=== PATIENT | female | born 1955 | race Caucasian/White ===

== ENCOUNTER 2020-07-31 14:05 | Emergency (ER) | payer OTHER, SELFPAY ==
--- NOTE | ~2020-07-31 | XR_ITS ---
EXAMINATION: XR chest 2V DATE: 07/31/2020 15:21 INDICATION: Confusion and memory loss TECHNIQUE: Frontal and lateral views of the chest are obtained COMPARISON: 08/07/2007 FINDINGS: The lungs are free of acute opacities. There is no pleural effusion or pneumothorax. The ca rdiomediastinal silhouette is normal. There is mild thoracic spondylosis. IMPRESSION: 1. No acute cardiopulmonary abnormality. Reviewed, dictated and finalized at location A. REPAIR INSPECTOR
--- NOTE | ~2020-07-31 | CT_ITS ---
EXAMINATION: CT brain wo con INDICATION: Headache COMPARISON: None TECHNIQUE: Standard unenhanced head CT. The dose-length product (DLP) was 605.33 mGy-cm. The mA was a djusted according to patient size. Iterative reconstruction technique was employed. FINDINGS: There is no intracranial hemorrhage, acute infarction, or abnormal mass lesion. The ventric les are normal. There is no abnormal mass effect or midline shift. The leong-white matter differentiat ion is normal. The basal cisterns are patent. The orbits are normal. The paranasal sinuses, mastoids and calvarium are normal. IMPRESSION: 1. No acute intracranial abnormality. Reviewed, dictated and finalized at location A. A INSTRUCTOR
[2020-07-31 14:10] VITALS: BP 139/90; PULSE 89; RESP 16; TEMP 36.6; O2SAT 97
--- NOTE | 2020-07-31 14:30 | ECG_ITS ---
Measurements Intervals Fowler Rate: 88 P: 7 MI: 183 QRS: -19 QRSD: 87 T: 16 QT: 355 QTc: 430 Interpretive Statements SINUS RHYTHM BORDERLINE R WAVE PROGRESSION, ANTERIOR LEADS BORDERLINE ECG Electronically Signed On 07-31-2020 16:06:04 TESTER PRINTED [employer]ARDS by Gerry Neil D.O.
[2020-07-31] MEDS: SODIUM CHLORIDE 0.9% IV 500 ML 999 ML IV CONT (14:40)
--- NOTE | 2020-07-31 14:40 | ED.NEUROSD ---
HPI - Neuro Symptoms/Deficit General Chief Complaint: Neuro Symptoms/Deficit Stated Complaint: lost sense of time confused Source: patient and family Mode of arrival: ambulatory History of Present Illness HPI Narrative: 64-year-old female presents with confusion, the patient earlier today lost track of time and while texting her daughter did not remember any of the the actual techs that she sent to her her daughter not sure of how long lasted but appears the patient is back to her baseline, there is currently no headaches no blurry vision no neurological deficits no weakness in her arms or legs patient is alert and oriented x3 with no fever chills no shortness of breath no chest pain no abdominal pain no dysuria. The patient does state that she has some urinary frequency and just finished a course of antibiotics for a urinary tract infection 2 days ago and took a dose of Diflucan yesterday for a vaginal yeast infection. Related Data Home Medications Medication Instructions Recorded Confirmed escitalopram oxalate 10 mg PO DAILY 07/31/20 07/31/20 hydroxyzine HCl 25 mg PO HS PRN 07/31/20 07/31/20 nitrofurantoin macrocrystal 100 mg PO Q12H 07/31/20 07/31/20 [Macrodantin] Allergies Allergy/AdvReac Type Severity Reaction Status Date / Time No Known Allergies Allergy Unknown Verified 02/08/08 10:37 Review of Systems Review of Systems: All systems reviewed & are unremarkable except as noted in HPI and below PMFSH Past Medical History Medical History Anxiety Depression Family History Family History Mother Patient's mother is in good health Father Patient's father is in good health Social History Social History Smoking status: Never smoker Alcohol intake: current Exam Const: General: no acute distress and alert Orientation/consciousness: patient oriented x3 and confusion ( confused appears to be back to her baseline) HENMT: Head: normal to inspection Eyes: Conjunctivae: conjunctivae normal Pupils: Equal, round and reactive pupils present EOM: EOMs intact bilaterally Direct Ophthalmoscopy: no photophobia Neck: Neck: normal visual inspection, no lymphadenopathy and no meningeal signs Chest: Chest palpation & inspection: normal inspection of the chest Resp: Effort & Inspection: normal respiratory effort Auscultation: clear to auscultation bilaterally Cardio: Rate: regular rate Rhythm: regular rhythm GI: GI Palp: Yes Soft to palpation Percussion: Yes normal to percussion Urinary Catheter: Urinary Catheter: urine clear Back/Spine/Pelvis: Back: no CVA tenderness Skin: General skin exam: normal color Rashes: no rashes Neuro: General: patient oriented x3, moves all extremities, no meningeal signs, no focal motor deficits and CN's II-XI intact bilaterally Cranial nerves: Yes Nystagmus not present Speech: normal speech Gait exam (Neuro): Normal gait present Extrem: General: normal to inspection and no pedal edema Psych: Appearance: grossly normal Mental Status: mental status grossly normal Affect: normal affect Thought content: Yes Normal thought content present Course Course Emergency Course: reassessment of patient, her symptoms have resolved the patient is back to her baseline with no current complaints no symptoms, reviewed UA blood work CT scan in chest x-ray that were within normal limits. Advised patient to follow-up with primary care physician within will 1 week for further evaluation if symptoms persist. Critical Care Time Critical Care Time Critical Care Time: No Discharge Plan Discharge Clinical Impression: Transient cerebral ischemia Qualifiers: Transient cerebral ischemia type: unspecified Qualified Code(s): G45.9 - Transient cerebral ischemic attack, unspecified Patient Disposition: Home, Self-Care Co
[2020-07-31 14:43] LABS: Appearance Urine Clear (Clear); Bilirubin Urine Negative (Negative); Color Urine Yellow (Yellow); Glucose Urine UA Negative (Negative); Ketones Urine Negative (Negative); Leukocyte Esterase Ur Negative LEU/UL (Negative); Nitrate Urine Negative (Negative); Protein Urine Negative (Negative); Specific Grav Ur 1.015 (1.010-1.020); Urobilinogen Urine 0.2 mg/dL (0.2-1.0)
[2020-07-31 14:53] LABS: Basophils Absolute Auto 0.04 K/mm3 (0.00-0.10); Basophils Percent Auto 0.5 % (0.0-1.0); Eosinophils Absolute Auto 0.08 K/mm3 (0.02-0.50); Hematocrit 42.2 % (35.0-49.0); Immature Granulocyte Absolute 0.02 K/mm3 (0.00-0.00); Immature Granulocyte Percent A 0.3 % (0.0-0.0); Lymphocytes Absolute Auto 1.64 K/mm3 (1.10-4.50); Lymphocytes Percent Auto 21.3 % (18.0-42.0); Mean Corpuscular HGB Conc 33.2 g/dL (32.0-36.0); Mean Corpuscular Hemoglobin 29.7 pg (27.0-31.0); Mean Corpuscular Volume 89.4 fL (78.0-102.0); Mean Platelet Volume 10.6 fl (9.2-11.8); Monocytes Absolute Auto 0.67 K/mm3 (0.10-0.90); Monocytes Percent Auto 8.7 % (2.0-11.0); Neutrophils Absolute Auto 5.3 K/mm3 (1.7-7.2); Neutrophils Percent Auto 68.2 % (50.0-70.0); Platelet Count Result 284 K/mm3 (150-420); Red Blood Count 4.72 M/mm3 (4.20-5.40); Red Cell Distribution Width 12.2 % (11.6-14.4); White Blood Count 7.7 K/mm3 (4.8-10.8)
[2020-07-31 15:01] LABS: Add Urine Microscopic? YES; Blood Urine Trace-Intact (Negative); RBC Urine None seen /hpf (0-2)
[2020-07-31 15:13] LABS: Lactic Acid Reflex 1.6 mmol/L (0.4-2.0)
[2020-07-31 15:22] LABS: Alanine Aminotransferase 26 U/L (14-59); Albumin Level 3.8 g/dL (3.4-5.0); Alkaline Phosphatase 112 U/L (46-116); Anion Gap 10 mmol/L (8-16); Aspartate Amino Transferase 11 U/L (15-37); Bilirubin,Total 0.3 mg/dL (0.00-1.00); Blood Urea Nitrogen 18 mg/dL (7-18); Calcium 9.5 mg/dL (8.5-10.1); Carbon Dioxide 27 mmol/L (21-32); Chloride 104 mmol/L (98-108); Creatine Kinase 69 U/L (26-192); Estimated Glomerular Filt Rate 54; Glucose 101 mg/dL (70-99); Osmolality Calculated 293 mOsm/kg (285-295); Potassium 3.9 mmol/L (3.5-5.1); Sodium 141 mmol/L (136-145); Thyroid Stimulating Hormone 3.04 uIU/mL (0.36-3.74); Total Protein 7.4 g/dL (6.4-8.2)
[2020-07-31 15:23] LABS: Ammonia < 10 umol/L (11-32)
[2020-07-31 15:46] VITALS: BP 132/95
[2020-07-31 15:50] LABS: Troponin I 6.2 ng/L (0.00-60.4)
== END 2020-07-31 15:48 | disposition home or self-care (01) ==
PROVIDERS: Emergency Provider Emergency Medicine; PCP Internal Medicine
DX: G45.9 Transient cerebral ischemic attack, unspecified (principal)
CPT/HCPCS: 36415; 70450; 71046; 80053; 81001; 82140; 82550; 83605; 84443; 84484; 85025; 93005; 96360; 99282; 99284; J7040

== ENCOUNTER 2021-01-01 11:01 | Outpatient (CLI) | payer OTHER, SELFPAY ==
[2021-01-01 12:11] LABS: SARS-CoV-2 RNA PCR Negative (Negative)
== END 2021-01-01 11:02 | disposition home or self-care (01) ==
LOC: CHSLAB 11:03
PROVIDERS: PCP Internal Medicine; Visit Provider Internal Medicine
DX: Z20.822 Contact with and (suspected) exposure to COVID-19 (principal)
CPT/HCPCS: C9803; U0003; U0005

== ENCOUNTER 2022-12-29 15:41 | Outpatient (CLI) | payer MEDICARE, SELFPAY ==
--- NOTE | ~2022-12-29 | CT_ITS ---
EXAMINATION: CT abdomen pelvis wo con DATE: 12/29/2022 16:11 INDICATION: Abdominal pain, microscopic hematuria TECHNIQUE: Computed tomography (CT) of the abdomen and pelvis was performed without intravenous contr ast. The dose-length product (DLP) was 320.95 mGy-cm. Automated exposure control and iterative recons truction technique were employed. COMPARISON: None FINDINGS: The heart size is normal. There is a moderate-sized sliding hiatal hernia. There is a 4 mm nodule of the left lower lobe, probably benign. Cysts of the liver measure up to 5.9 cm in the left h epatic lobe. There is a 2.2 cm cyst of the spleen. The pancreas, gallbladder, and adrenal glands are normal. There is a 6 mm cyst of the right kidney. There is a 2 mm nonobstructing stone of the left ki dney upper pole. No stones are identified in the ureters or bladder. No hydronephrosis or hydroureter . No pathologically enlarged abdominal or pelvic lymph nodes are identified. No free intraperitoneal gas or evidence of bowel obstruction. There is mild lumbar spondylosis. There is an umbilical hernia containing fat. IMPRESSION: 1. Punctate left nephrolithiasis. 2. Moderate-sized sliding hiatal hernia. Reviewed, dictated and finalized at location B.
== END 2022-12-29 15:42 | disposition home or self-care (01) ==
LOC: CHSIMG 15:43
PROVIDERS: PCP Internal Medicine; Visit Provider Internal Medicine
DX: R10.9 Unspecified abdominal pain (principal); R31.29 Other microscopic hematuria; N20.0 Calculus of kidney; K44.9 Diaphragmatic hernia without obstruction or gangrene
CPT/HCPCS: 74176

== ENCOUNTER 2023-03-11 15:29 | Outpatient (CLI) | payer MEDICARE, SELFPAY ==
--- NOTE | ~2023-03-11 | XR_ITS ---
XR chest 2V DATE: 03/11/2023 15:52 INDICATION: Dyspnea and cough for 4 weeks. Diaphoresis today. TECHNIQUE: 2 views COMPARISON: July 31, 2020 2 view chest FINDINGS: Normal heart size. Moderately large hiatal hernia. No hilar or mediastinal enlargement. No pulmonary infiltrate or consolidation, pleural effusion or pulmonary vascular congestion or pneumo thorax is detected. IMPRESSION: No active cardiopulmonary disease Moderately prominent hiatal hernia Reviewed, dictated and finalized at location A.
[2023-03-11 16:42] LABS: Basophils Absolute Auto 0.02 K/mm3 (0.00-0.10); Basophils Percent Auto 0.4 % (0.0-1.0); Eosinophils Absolute Auto 0.05 K/mm3 (0.02-0.50); Eosinophils Percent Auto 0.9 % (1.0-6.0); Hematocrit 37.8 % (35.0-42.0); Immature Granulocyte Absolute 0.01 K/mm3 (0.00-0.00); Immature Granulocyte Percent A 0.2 % (0.0-0.0); Lymphocytes Absolute Auto 1.88 K/mm3 (1.10-4.50); Lymphocytes Percent Auto 34.9 % (18.0-42.0); Mean Corpuscular HGB Conc 31.7 g/dL (32.0-36.0); Mean Corpuscular Hemoglobin 27.4 pg (27.0-31.0); Mean Corpuscular Volume 86.3 fL (78.0-102.0); Monocytes Absolute Auto 0.41 K/mm3 (0.10-0.90); Monocytes Percent Auto 7.6 % (2.0-11.0); Platelet Count Result 307 K/mm3 (150-420); Red Blood Count 4.38 M/mm3 (4.20-5.40); Red Cell Distribution Width 12.7 % (11.6-14.4); White Blood Count 5.4 K/mm3 (4.8-10.8)
[2023-03-11 17:03] LABS: Alanine Aminotransferase 17 U/L (14-59); Albumin Level 3.3 g/dL (3.4-5.0); Alkaline Phosphatase 103 U/L (46-116); Anion Gap 10 mmol/L (8-16); Aspartate Amino Transferase 10 U/L (15-37); Bilirubin,Total 0.2 mg/dL (0.00-1.00); Blood Urea Nitrogen 17 mg/dL (7-18); Calcium 8.9 mg/dL (8.5-10.1); Carbon Dioxide 27 mmol/L (21-32); Chloride 109 mmol/L (98-108); Creatine Kinase 51 U/L (26-192); Creatine Kinase MB < 0.50 ng/mL (0.00-5.00); Estimated Glomerular Filt Rate 49; Glucose 87 mg/dL (70-99); NT Pro B Type Natriuretic Pept 206 pg/mL (0-125); Osmolality Calculated 302 mOsm/kg (285-295); Potassium 3.4 mmol/L (3.5-5.1); Sodium 146 mmol/L (136-145); Total Protein 7.2 g/dL (6.4-8.2); Troponin I 5.7 ng/L (0.00-60.4)
== END 2023-03-11 15:30 | disposition home or self-care (01) ==
PROVIDERS: PCP Internal Medicine; Visit Provider Internal Medicine
DX: K44.9 Diaphragmatic hernia without obstruction or gangrene (principal); R06.00 Dyspnea, unspecified; R05.9 Cough, unspecified; R61 Generalized hyperhidrosis
CPT/HCPCS: 36415; 71046; 80053; 82550; 82553; 83880; 84484; 85025

== ENCOUNTER 2023-03-21 14:42 | Outpatient (CLI) | payer MEDICARE, SELFPAY ==
[2023-03-21 15:19] LABS: Alanine Aminotransferase 16 U/L (14-59); Albumin Level 3.5 g/dL (3.4-5.0); Alkaline Phosphatase 107 U/L (46-116); Anion Gap 10 mmol/L (8-16); Aspartate Amino Transferase 12 U/L (15-37); Bilirubin,Total 0.4 mg/dL (0.00-1.00); Blood Urea Nitrogen 13 mg/dL (7-18); Calcium 8.8 mg/dL (8.5-10.1); Carbon Dioxide 27 mmol/L (21-32); Chloride 105 mmol/L (98-108); Estimated Glomerular Filt Rate 49; Glucose 115 mg/dL (70-99); Osmolality Calculated 295 mOsm/kg (285-295); Potassium 3.7 mmol/L (3.5-5.1); Sodium 142 mmol/L (136-145); Total Protein 6.6 g/dL (6.4-8.2)
[2023-03-21 15:31] LABS: CRP < 0.5 mg/dL (0.0-0.9)
[2023-03-21 15:34] LABS: Influenza A QL RT-PCR Negative (Negative); Influenza B QL RT-PCR Negative (Negative); SARS-CoV-2 RNA PCR Negative (Negative)
[2023-03-21 15:55] LABS: RSV RNA, RT-PCR Negative (Negative)
== END 2023-03-21 14:43 | disposition home or self-care (01) ==
LOC: CHSLAB 14:44
PROVIDERS: PCP Internal Medicine; Visit Provider Internal Medicine
DX: R05.9 Cough, unspecified (principal)
CPT/HCPCS: 36415; 80053; 86140; 87637

== ENCOUNTER 2025-05-07 11:42 | Outpatient (CLI) | payer MEDICARE, SELFPAY ==
--- NOTE | ~2025-05-07 | XR_ITS ---
EXAMINATION: XR toe 3rd LT min 2V, 05/07/2025 12:00 YARD OPERATOR HISTORY: L FOOT INJURY, TOE INFECTION, FALL COMPARISON: No comparisons available. Findings: There is a comminuted fracture distal aspect of the distal phalanx with areas of lucency noted suspicious for osteomyelitis. No significant degenerative changes. Soft tissues unremarkable. Impression: Healing fracture. Underlying osteomyelitis difficult to exclude Reviewed, dictated and finalized at location P. OPERATOR Impression: Healing fracture. Underlying osteomyelitis difficult to exclude
[2025-05-07 11:57] LABS: Hematocrit 41.0 % (35.0-42.0); Hemoglobin 13.1 g/dL (11.7-13.8); Mean Corpuscular HGB Conc 32.0 g/dL (32-36); Mean Corpuscular Hemoglobin 28.9 pg (27.0-31.0); Mean Corpuscular Volume 90.3 fL (78.0-102.0); Platelet Count Result 351 K/mm3 (150-420); Red Blood Count 4.54 M/mm3 (4.20-5.40); White Blood Count 8.4 K/mm3 (4.8-10.8)
[2025-05-07 12:12] LABS: Alanine Aminotransferase 18 U/L (6-35); Albumin Level 4.4 g/dL (3.5-5.1); Alkaline Phosphatase 82 U/L (38-126); Anion Gap 7 mmol/L (4-12); Aspartate Amino Transferase 25 U/L (14-36); Bilirubin,Total 0.5 mg/dL (0.2-1.3); Blood Urea Nitrogen 13 mg/dL (7-17); Calcium 9.0 mg/dL (8.4-10.2); Carbon Dioxide 29 mmol/L (22-30); Chloride 107 mmol/L (98-107); Estimated Glomerular Filt Rate 49; Glucose 92 mg/dL (65-110); Osmolality Calculated 296 mOsm/kg (285-295); Potassium 4.5 mmol/L (3.4-5.0); Sodium 143 mmol/L (137-145); Total Protein 7.3 g/dL (6.3-8.2)
[2025-05-07 14:28] LABS: CRP < 0.5 mg/dL (<1.0)
== END 2025-05-07 11:43 | disposition home or self-care (01) ==
LOC: CHSLAB 11:44
PROVIDERS: PCP Internal Medicine; Visit Provider Nurse Practitioner Family
DX: S92.912A Unspecified fracture of left toe(s), initial encounter for closed fracture (principal); S99.922A Unspecified injury of left foot, initial encounter; L08.9 Local infection of the skin and subcutaneous tissue, unspecified
CPT/HCPCS: 36415; 73660; 80053; 85027; 85652; 86140

== ENCOUNTER 2025-05-14 08:25 | Outpatient (CLI) | payer MEDICARE, SELFPAY ==
--- NOTE | ~2025-05-14 | CT_ITS ---
EXAMINATION: CT scan left foot with contrast: DATE: 05/14/2025. INDICATION: History of fracture third toe. Possible osteomyelitis. TECHNIQUE: US performed with 100 cc Omnipaque 350 and multiplanar images obtained. COMPARISON: Radiograph dated 05/07/2025. FINDINGS: Acute or subacute comminuted fractures of the distal phalanx of the third toe is noted with radiographic findings. Soft tissue swelling noted. No definite CT evidence of osteomyelitis. No well-circumscribed soft tissue abscess. No gas bubbles are seen in the soft tissues of the forefoot. 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 Dorsal calcaneal spur. IMPRESSION: 1. Comminuted acute or subacute fractures of the distal phalanx of the third toe. Soft tissue swelling of the third toe. 2. No definite CT evidence of osteomyelitis. Radiographic follow-up is suggested. If clinical suspicion of osteomyelitis persists, more definitive evaluation with MRI is recommended with and without contrast. Reviewed, dictated and finalized at location T. AL PHYSIOLOGY TEACHER IMPRESSION: 1. Comminuted acute or subacute fractures of the distal phalanx of the third to e. Soft tissue swelling of the third toe. 2. No definite CT evidence of osteomyelitis. Radiographic follow-up is suggeste d. If clinical suspicion of osteomyelitis persists, more definitive evaluation with MRI is recommended with and without contrast.
--- OUTSIDE RECORDS SUMMARY | 2025-05-14 08:34 | XMS_ITS | Clinical Summary ---
Author Organization [facility] Address [address], [address] [address] Phone Care Team Providers Care Post Anesthesia Nurse Name Role Phone Elver Conway MD Primary Care Provider [phone] Saravanan Mckinley DO Unavailable [phone] Social History Tobacco Use Types Packs/Day Years Used Date Smoking Tobacco: Never Assessed Comments Unknown Sex and Gender Information Value Date Recorded Sex Assigned at Not on file Legal Sex Female 11:15 PM CDT Gender Identity Not on file Sexual Orientation Not on file Plan of Treatment Health Maintenance Due Date Last Done Comments Hepatitis C Virus (HCV) Screening 1955 TdaP Immunization 1955 Cologuard 2002 Immunochemical Fecal Occult Blood 2002 Pneumococcal Immunization (5 0+ years) (1 of 1 - PCV) 11/10/2007 Zoster Immunization (1 of 2) 11/10/2007 Influenza Immunization (#1) 2025 SARS-COV-2 Immunization ( - season) 2025 Colonoscopy 06/30/2025 06/30/2015 Colorectal Cancer Screening 06/30/2025 Respiratory Syncytial Virus (RSV) Immunization (Adult) (1 - 1-dose 75+ series) 2032 Hepatitis B Immunization Aged Out No longer eligible based on patient's age to complete this topic Human Papillomavirus (HPV) Immunization Aged Out No longer eligible b ased on patient's age to complete this topic Meningococcal Immunization (ACWY) Aged Out No longer eligible based on patient's age to complete this topic Rotavirus Immunization Aged Out No lo nger eligible based on patient's age to complete this topic Procedures Procedure Name Priority Date/Time Associated Diagnosis Comments COLONOSCOPY Routine 06/30/2015 from Last 3 Months or Most Recently Relevant to Health Maintenance Results * COLONOSCOPY (06/30/2015) Elver Conway MD PROCEDURE/MINOR SURGICAL ORDER JO Final Result from Last 3 Months or Most Recently Relevant to Health Maintenance Insurance [facility] Care Teams Post Anesthesia Nurse Relationship Specialty Start Date End Date Elver Conway MD PCP - General Internal Medicine 06/30/15 Saravanan Mckinley DO Gastroenterology 06/30/15
== END 2025-05-14 08:26 | disposition home or self-care (01) ==
LOC: CHSIMG 08:27
PROVIDERS: PCP Internal Medicine; Visit Provider Nurse Practitioner Family
DX: L08.9 Local infection of the skin and subcutaneous tissue, unspecified (principal); S92.532A Displaced fracture of distal phalanx of left lesser toe(s), initial encounter for closed fracture; M79.89 Other specified soft tissue disorders
CPT/HCPCS: 73701; Q9967

== ENCOUNTER 2025-05-30 15:37 | Outpatient (CLI) | payer MEDICARE, SELFPAY ==
--- NOTE | ~2025-05-30 | MR_ITS ---
EXAMINATION: MRI left foot attention third toe with and without contrast: DATE: 05/30/2025 INDICATION: History of fracture of the distal phalanx of the third toe with suspected osteomyelitis. Inconclusive findings on CT scan for osteomyelitis. TECHNIQUE: Axial, coronal and sagittal images of the left forefoot including postcontrast study with 20 mL MultiHance IV.. COMPARISON: Radiograph third toe 05/07/2025. CT scan foot dated 05/14/2025. FINDINGS: Subacute comminuted fractures of distal phalanx of the third toe is noted again with diffuse soft tissue swelling around the distal phalanx. Low T1 signal of the distal phalanx high T2 signal on the precontrast study. On the postcontrast examination there is enhancement of the distal phalanx. There is also enhancement of the soft tissues surrounding the distal phalanx. No localized abscess. IMPRESSION: 1. Aforementioned MRI findings of the distal phalanx and surrounding soft tissues show evidence of subacute fractures with possible osteomyelitis. Clinical and lab correlation is recommended. Reviewed, dictated and finalized at location T. PING HELPER IMPRESSION: 1. Aforementioned MRI findings of the distal phalanx and surrounding soft tissu es show evidence of subacute fractures with possible osteomyelitis. Clinical an d lab correlation is recommended.
--- OUTSIDE RECORDS SUMMARY | 2025-05-30 18:40 | XMS_ITS | Clinical Summary ---
Author Organization [facility] Address [address], [address] [address] Phone Care Team Providers Care Account Executive Trainee Name Role Phone Elver Conway MD Primary Care Provider [phone] Saravanan Mckinley DO Unavailable [phone] Social History Tobacco Use Types Packs/Day [...] Most Recently Relevant to Health Maintenance Insurance [facility] Care Teams Account Executive Trainee Relationship Specialty Start Date End Date Elver Conway MD PCP - General Internal Medicine 06/30/15 Saravanan Mckinley DO Gastroenterology 06/30/15
== END 2025-05-30 15:38 | disposition home or self-care (01) ==
LOC: CHSIMG 15:39
PROVIDERS: PCP Internal Medicine; Visit Provider Nurse Practitioner Family
DX: L08.9 Local infection of the skin and subcutaneous tissue, unspecified (principal); S92.532A Displaced fracture of distal phalanx of left lesser toe(s), initial encounter for closed fracture
CPT/HCPCS: 73720